=== PATIENT | female | born 1995 ===

== ENCOUNTER 2020-09-28 13:13 | Inpatient (IN) | payer OTHER ==
[~2020-09-28] VITALS: Ht 165.1 cm; Wt 109.1 kg
[2020-09-28] MEDS ORDERED: MISOPROSTOL 200 MCG TABLET ONE (20:14)
[2020-09-28] MEDS ORDERED: LIDOCAINE 1%, 20ML ONE (20:14)
[2020-09-28] MEDS ORDERED: NEWBORN KIT ONE (20:14)
[2020-09-28] MEDS ORDERED: OXYTOCIN 30U/ 0.9% NaCL 500ML 500 ML ONE (20:14)
[2020-09-28] MEDS ORDERED: FENTANYL PF 100 MCG/2ML IV PRN (20:30)
[2020-09-28] MEDS ORDERED: TERBUTALINE 1 MG/ML, 1ML IVPush PRN (20:30)
[2020-09-28] MEDS ORDERED: TERBUTALINE 1 MG/ML, 1ML SQ PRN (20:30)
[2020-09-28] MEDS ORDERED: OXYTOCIN 30U/ 0.9% NaCL 500ML 500 ML IV ONE (20:30)
[2020-09-28] MEDS ORDERED: FENTANYL PF 100 MCG/2ML IVPush PRN (20:30)
[2020-09-28] MEDS ORDERED: ALUMINUM/MAG/SIMETHICONE 30 ML UDC PO PRN (20:30)
[2020-09-28] MEDS ORDERED: CALCIUM CARBONATE 500 MG TAB.CHEW PO PRN (20:30)
[2020-09-28] MEDS ORDERED: ONDANSETRON 2MG/ML, 2ML IVPush PRN (20:30)
[2020-09-28] MEDS ORDERED: PLEASE ENTER ALLERGIES MC SCH ×2 (20:30)
[2020-09-28] MEDS ORDERED: OXYTOCIN 30U/ 0.9% NaCL 500ML 500 ML IV PRN (20:30)
[2020-09-28] MEDS ORDERED: D5%-LACTATED RINGERS 1,000 ML IV SCH (20:30)
[2020-09-28 20:51] LABS: BASOPHILS % (AUTO) 1 % (0-1); EOSINOPHILS % (AUTO) 1 % (1-7); LYMPHOCYTES % (AUTO) 19 % (22-44); MEAN CORPUSCULAR HGB CONC 33.7 g/dL (32.4-35.8); MONOCYTES % (AUTO) 5 % (2-9); NEUTROPHILS % (AUTO) 74 % (42-75); PLATELET COUNT 296 x10^3/uL (130-400); RED BLOOD COUNT 4.23 x10^6/uL (3.82-5.3); RED CELL DISTRIBUTION WIDTH 14.1 % (9.6-15.2)
[2020-09-28 20:57] LABS: MD NO
[2020-09-28] MEDS ORDERED: PLEASE ENTER HEIGHT AND WEIGHT MC SCH (21:00)
[2020-09-28] MEDS ORDERED: MISOPROSTOL 25 MCG TABLET ONE (21:15)
[2020-09-28] MEDS ORDERED: MISOPROSTOL 25 MCG TABLET VG PRN (21:30)
[2020-09-29] MEDS: LACTATED RINGERS 1,000 ML IV SCH ×3 (05:31→13:26)
[2020-09-29] MEDS ORDERED: FENTANYL PF 100 MCG/2ML ONE (11:41)
[2020-09-29] MEDS ORDERED: FENTANYL/BUPIV./NS/PF 250 ML EPIDCONT ONE (13:27)
[2020-09-29] MEDS ORDERED: LIDOCAINE/PF 1.5% EPI 1:200K, 10 ML ONE (13:28)
[2020-09-29] MEDS ORDERED: EPHEDRINE 50 MG/ML, 1ML ONE (14:04)
[2020-09-29] MEDS ORDERED: NALOXONE 0.4 MG/ML, 1ML IVPush PRN (14:30)
[2020-09-29] MEDS ORDERED: FENTANYL/BUPIV./NS/PF 250 ML EPIDCONT SCH (14:30)
[2020-09-29] MEDS ORDERED: EPHEDRINE 50 MG/ML, 1ML IVPush PRN (14:30)
[2020-09-29] MEDS ORDERED: LACTATED RINGERS 1,000 ML IV SCH (14:30)
[2020-09-29] MEDS ORDERED: LACTATED RINGERS 1,000 ML IVBOLUS PRN (14:30)
[2020-09-29] MEDS ORDERED: LACTATED RINGERS 1,000 ML INTUTE PRN (15:30)
[2020-09-29] MEDS ORDERED: LACTATED RINGERS 1,000 ML INTUTE SCH (15:30)
[2020-09-29] MEDS ORDERED: ACETAMINOPHEN 325 MG TABLET PO PRN ×2 (19:00)
[2020-09-29] MEDS ORDERED: MISOPROSTOL 200 MCG TABLET PR PRN (19:00)
[2020-09-29] MEDS ORDERED: OXYcodone/APAP 5/325MG TABLET PO PRN (19:00)
[2020-09-29] MEDS ORDERED: SIMETHICONE 80 MG CHEW TAB PO PRN (19:00)
[2020-09-29] MEDS ORDERED: IBUPROFEN 600 MG TABLET ONE (19:13)
[2020-09-29] MEDS ORDERED: OXYTOCIN 30U/ 0.9% NaCL 500ML 500 ML ONE (19:13)
[2020-09-29] MEDS: OXYTOCIN 30U/ 0.9% NaCL 500ML 500 ML IV SCH (19:15)
[2020-09-29] MEDS: IBUPROFEN 600 MG TABLET PO PRN (19:15)
[2020-09-29 21:30] VITALS: BP 103/69
[2020-09-30 01:20] VITALS: BP 120/79
[2020-09-30 04:30] VITALS: BP 98/64
[2020-09-30] MEDS: OXYTOCIN 30U/ 0.9% NaCL 500ML 500 ML IV SCH ×2 (05:00→15:00)
[2020-09-30 06:52] LABS: BASOPHILS % (AUTO) 0 % (0-1); EOSINOPHILS % (AUTO) 1 % (1-7); LYMPHOCYTES % (AUTO) 18 % (22-44); MEAN CORPUSCULAR HEMOGLOBIN 29.8 pg (27.0-34.8); MEAN CORPUSCULAR HGB CONC 34.4 g/dL (32.4-35.8); MEAN PLATELET VOLUME 8.9 fL (7.4-10.4); MONOCYTES % (AUTO) 7 % (2-9); NEUTROPHILS % (AUTO) 74 % (42-75); PLATELET COUNT 233 x10^3/uL (130-400); RED BLOOD COUNT 3.63 x10^6/uL (3.82-5.3); RED CELL DISTRIBUTION WIDTH 14.3 % (9.6-15.2)
[2020-09-30 06:54] LABS: MD NO
[2020-09-30] MEDS: IBUPROFEN 600 MG TABLET PO PRN ×2 (07:46→21:10)
[2020-09-30] MEDS: DOCUSATE 100 MG CAPSULE PO PRN (07:46)
[2020-09-30] MEDS: PRENATAL VIT/IRON/FA 1 EACH TABLET PO SCH (07:46)
[2020-09-30 08:00] VITALS: BP 127/85
[2020-09-30 20:50] VITALS: BP 132/78
[2020-10-01] MEDS: PRENATAL VIT/IRON/FA 1 EACH TABLET PO SCH (07:32)
[2020-10-01] MEDS: DOCUSATE 100 MG CAPSULE PO PRN (07:32)
[2020-10-01] MEDS: IBUPROFEN 600 MG TABLET PO PRN (07:32)
[2020-10-01 07:40] VITALS: BP 121/78
[2020-10-01] MEDS ORDERED: IBUP-1222 PO (11:04)
== END 2020-10-01 15:30 | disposition home or self-care (01) | DRG 807 ==
LOC: LDIP 20:02 → 2NW 09-29 21:10
PROVIDERS: ADMIT Obstetrics & Gynecology; ATTEND Obstetrics & Gynecology
PROC: 10E0XZZ Delivery of Products of Conception, External Approach (ICD-10-PCS; principal; 2020-09-29)
PROC: 10907ZC Drainage of Amniotic Fluid, Therapeutic from Products of Conception, Via Natural or Artificial Opening (ICD-10-PCS; 2020-09-29)
PROC: 3E0R3BZ Introduction of Anesthetic Agent into Spinal Canal, Percutaneous Approach (ICD-10-PCS; 2020-09-29)
PROC: 00HU33Z Insertion of Infusion Device into Spinal Canal, Percutaneous Approach (ICD-10-PCS; 2020-09-29)
DX: O24.429 Gestational diabetes mellitus in childbirth, unspecified control (principal); Z37.0 Single live birth; O76 Abnormality in fetal heart rate and rhythm complicating labor and delivery; Z3A.39 39 weeks gestation of pregnancy; Z20.828 Contact with and (suspected) exposure to other viral communicable diseases
CPT/HCPCS: 36415; 82962; 85025; 86592; 86850; 86900; 87635; G0378; J3010; J2590; J7120